=== PATIENT | male | born 1970 | race Caucasian/White ===

== ENCOUNTER 2019-04-03 00:54 | Observation (INO) | payer SELFPAY ==
[~2019-04-03] VITALS: Ht 185.4 cm; Wt 79.5 kg
[2019-04-03 01:28] LABS: BASOPHILS 0.5 % (0-2); EOSINOPHILS 2.2 % (0-7); HEMATOCRIT 41.8 % (42.0-54.0); HEMOGLOBIN 13.7 g/dL (13.5-17.5); IMMATURE GRANULOCYTES 0.5 % (0-5); LYMPHOCYTES 30.9 % (15-50); MCH 30.6 pg (26.0-34.0); MCHC 32.8 g/dL (31.0-37.0); MCV 93.5 fL (80.0-100.0); MEAN PLATELET VOLUME 9.3 fL (7.4-10.4); MONOCYTES 8.3 % (2-11); NEUTROPHILS 57.6 % (40-80); PLATELET COUNT 198 10x3/uL (130-400); RBC 4.47 10x6/uL (4.20-6.10); RDW 13.2 % (11.5-14.5); WBC 8.3 10x3/uL (4.8-10.8)
[2019-04-03 01:40] LABS: CALC OSMOLALITY 288 mosm/kg (275-300); CALCIUM 8.2 mg/dL (8.5-10.1); CHLORIDE - SERUM 105 mmol/L (98-107); GLUCOSE 153 mg/dL (74-106); POTASSIUM - SERUM 3.3 mmol/L (3.5-5.1); SODIUM 142 mmol/L (136-145); UREA NITROGEN 22 mg/dL (7-18); eGFR NON AFRICAN AMERICAN 85 mL/min (90-120)
[2019-04-03 01:41] LABS: INR 0.86 (0.85-1.17); PROTIME 11.7 SECONDS (11.6-15.0)
[2019-04-03 01:42] LABS: APTT 26.4 SECONDS (22.8-39.4)
[2019-04-03 01:47] LABS: ALKALINE PHOSPHATASE 79 U/L (46-116); ALT (SGPT) 27 U/L (10-68); BILIRUBIN - TOTAL 0.26 mg/dL (0.2-1.3); PROTEIN - SERUM 6.6 g/dL (6.4-8.2)
--- NOTE | 2019-04-03 02:30 | NUR ---
PT TO RADIOLOGY.
--- NOTE | 2019-04-03 02:52 | NUR ---
PT RETURNED FROM RADIOLOGY.
[2019-04-03 04:00] VITALS: BP 129/90
--- NOTE | 2019-04-03 04:39 | NUR ---
PT RESTING, RR EVEN AND UNLABORED, VSS, WILL CONTINUE TO MONITOR.
[2019-04-03 05:00] VITALS: BP 141/96
--- NOTE | 2019-04-03 05:23 | NUR ---
PT GIVEN URINAL. DENIES ANY FURTHER NEEDS AT THIS TIME. WILL CONTINUE TO MONITOR.
[2019-04-03 06:00] VITALS: BP 125/82
--- NOTE | 2019-04-03 06:31 | NUR ---
ATTEMPTED TO CALL REPORT TO FLOOR, STATES THEY DO NOT HAVE A NURSE ASSIGNED FOR PT, WILL HAVE TO CALL BACK X 15 MIN TO GIVE REPORT TO DAY SHIFT.
[2019-04-03 10:55] VITALS: Ht 185.4 cm; Wt 79.5 kg
[2019-04-03] MEDS ORDERED: KEFLEX500 MG PO (12:15)
[2019-04-03] MEDS ORDERED: FLORAJEN3 CAPS460 MG PO (12:15)
[2019-04-03] MEDS ORDERED: TYLENOL #4 W/CO1 TAB PO (12:38)
[2019-04-03 13:24] VITALS: BP 142/77
--- NOTE | 2019-04-03 14:31 | NUR ---
DISCHARGE PAPERWORK SIGNED, ALL QUESTIONS ANSWERED. IV TO RIGHT HAND AND RIGHT FOREARM DC'D, TIPS INTACT. ESCORTED OUT BY WHEELCHAIR.
== END 2019-04-03 14:38 | disposition home or self-care (01) ==
LOC: D.ER 00:54 → D.OPS 06:15 → D.MS 06:15 → OBSVTIME 06:15 → EDSTATUS 06:33 → D.MS 14:38 → D.OPS 14:38 → EDSTATUS 04-05 13:28
PROVIDERS: Family Medicine; ADMIT Family Medicine; ATTEND Family Medicine
DX: S79.822A Other specified injuries of left thigh, initial encounter (principal); W13.4XXA Fall from, out of or through window, initial encounter